=== PATIENT | female | born 1965 | race Caucasian/White ===

== ENCOUNTER 2016-11-26 00:50 | Emergency (ER) | payer OTHER ==
[~2016-11-26] VITALS: Ht 167.6 cm; Wt 120.2 kg
[~2016-11-26 00:50] MED LIST: FERROUS SULFAT324 M2; FERROUS SULFAT325 M1 PO; SYNTHROID0.05 M1 PO
[2016-11-26 00:55] VITALS: BP 144/80
--- NOTE | 2016-11-26 01:03 | NUR ---
TO ER BED 5
--- NOTE | 2016-11-26 01:15 | NUR ---
Patient being evaluated by physician at bedside.
--- NOTE | 2016-11-26 01:17 | NUR ---
51Y F BIB FAMILY C/O OF ABSCESS TO LT FOOT X2 DAYS W/ PAIN 8/10 IN SCALE. V/S WNL, NO DISTRESS NOTED.
--- NOTE | 2016-11-26 02:15 | NUR ---
ASSIST DR AMAYA TO REMOVE LT LOWER LEG CAST W/O COMPLICATION NOTED. PT TOLERATED THE PROCEDURE WELL.
--- NOTE | 2016-11-26 02:30 | NUR ---
DR AMAYA CHECKED THE AFFECTED LEG AFTER CAST REMOVAL. NO ABSCESS FOUND AND PT IS AWARE.
--- NOTE | 2016-11-26 03:35 | NUR ---
Patient discharged with v/s stable. Written and verbal after care instructions given and explained BY DR AMAYA. Patient verbalized understanding. Ambulatory with [facility]. All questions addressed prior to discharge. Advised to follow up with PMD.
[2016-11-26 03:36] VITALS: BP 139/75
== END 2016-11-26 03:35 | disposition home or self-care (01) ==
LOC: MED 00:50
DX: S90.32XA Contusion of left foot, initial encounter (principal); G43.909 Migraine, unspecified, not intractable, without status migrainosus; E03.9 Hypothyroidism, unspecified; I10 Essential (primary) hypertension; X58.XXXA Exposure to other specified factors, initial encounter; Y93.89 Activity, other specified; Y92.89 Other specified places as the place of occurrence of the external cause; Y99.8 Other external cause status